=== PATIENT | male | born 1955 | race American Indian/Alaskan Native ===

== ENCOUNTER 2019-06-22 13:18 | Emergency (ER) | payer OTHER | END 2019-06-22 18:45 | disposition home or self-care (01) | LOC: ED 13:18 | DX: R11.2 Nausea with vomiting, unspecified (principal); R03.0 Elevated blood-pressure reading, without diagnosis of hypertension; R10.9 Unspecified abdominal pain; E11.9 Type 2 diabetes mellitus without complications; F32.9 Major depressive disorder, single episode, unspecified; F12.10 Cannabis abuse, uncomplicated; Z79.899 Other long term (current) drug therapy | CPT/HCPCS: 36415; 74176; 80048; 80053; 80307; 81001; 82550; 82962; 83690; 83735; 85007; 85025; 85610; 93005; 96361; 96372; 96374; 99285; J1630; J7030; J7040 ==